=== PATIENT | male | born 1990 | race American Indian/Alaskan Native ===

== ENCOUNTER 2019-06-03 18:24 | Emergency (ER) | payer SELFPAY ==
[2019-06-03 18:26] VITALS: BP 130/63
--- NOTE | 2019-06-03 20:28 | Emergency Department Report ---
Chief Complaint: Skin Rash Stated Complaint: RASH Time Seen by Provider: 06/03/19 20:23 - HPI History of Present Illness: 29 y/o male comes in for rash on both forearms and left hip times 1 week. Taking nothing for pain. Has been using citrus juices. Using Hydrocortisone. Has no pets. - Exam Vital Signs: Vital Signs 06/03/19 18:25 Temperature 98.1 F Pulse Rate 72 Respiratory 15 Rate Blood Pressure 130/63 [Left] O2 Sat by Pulse 97 Oximetry Physical Exam: axo times 3 NAD no fevers rash excoriation to both fore arms with no swelling no warmth no discharge. MSE screening note: Focused history and physical exam performed. Due to findings the following was ordered: 29 y/o male comes in for rash on both forearms and left hip times 1 week. Taking nothing for pain. Has been using citrus juices. Using Hydrocortisone. Recommend to follow up with urgent care or Primary Care. Continue with Hydrocortisone and Over the counter Nix which is permethrin 1% and take Claritin for itching. ED Disposition for MSE Disposition: MED SCREENING EXAM-LEFT Is pt being admited?: No Does the pt Need Aspirin: No Condition: Stable Additional Instructions: Recommend to follow up with urgent care or Primary Care. Continue with Hydrocortisone and Over the counter Nix which is permethrin 1% and take Claritin for itching. Referrals: HORTENCIA VALENCIA MD [Staff Physician] - 3-5 Days [facility] [Provider Group] - 3-5 Days SHERRIE ALTMAN MD [Staff Physician] - 3-5 Days Forms: Work/School Release Form(ED)
== END 2019-06-03 20:40 | disposition left against medical advice (07) ==
LOC: ED 18:24
DX: R21 Rash and other nonspecific skin eruption (principal); Z53.21 Procedure and treatment not carried out due to patient leaving prior to being seen by health care provider